=== PATIENT | female | born 1965 | race Caucasian/White ===

== ENCOUNTER 2016-11-09 15:30 | Emergency (ER) | payer OTHER ==
--- NOTE | 2016-11-09 17:09 | EDPHY ---
H & P Stated Complaint: heavy vaginal bleeding since 230 today/is on TXA HPI/ROS: CHIEF COMPLAINT: Heavy menstrual bleeding HISTORY OF PRESENT ILLNESS: This patient is a 51 year old female complaining of very heavy menstrual bleeding onset , 4 days ago, worsening today. She states she generally has heavy bleeding associated with her menstrual periods. This most recent menstrual cycle began about seven days later than usual. Today, she states that she bled through a super-plus sized tampon every fifteen minutes since noon. 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 She is instructed to take 2 tablets by mouth up to three times daily. She denies urinary or bowel movement changes, or associated pain. REVIEW OF SYSTEMS: A ten point review of systems was performed and is negative with the exception of the items mentioned in the HPI. - Personal History LMP (Females 10-55): Now Current Tetanus/Diphtheria Vaccine: Yes - Medical/Surgical History PMH: PMH: back and neck pain, thyroid replacement, allergies. Previous pregnancies 3, para 2. Hx Asthma: No Hx Chronic Respiratory Disease: No Hx Diabetes: No Hx Cardiac Disease: No Hx Renal Disease: No Hx Cirrhosis: No Hx Alcoholism: No Hx HIV/AIDS: No Hx Splenectomy or Spleen Trauma: No Other PMH: back pain - Social History Smoking Status: Never smoked Tobacco Use: Cigarettes Additional Social History: Nonsmoker. OBGYN : Dr. Isabela Leary - Physical Exam Exam: General Appearance: Alert. Vital signs reviewed. blood pressure 166/86. Eyes: Pupils equal and round, no conjunctival injection, no discharge. Anicteric. ENT, Mouth: Mucous membranes are moist, no oropharyngeal erythema or edema. Neck: No lymphadenopathy, supple. Respiratory: Lungs are clear to auscultation; no wheezes, rales, or rhonchi. Cardiovascular: Regular rate and rhythm; no murmur, rub, or gallop. Gastrointestinal: Abdomen is soft and nontender, no masses or organomegaly, bowel sounds normal. Skin: Warm and dry, no rashes on exposed skin, normal color. Back: Nontender to palpation over the thoracolumbar spine. No CVAT. Pelvic: Uterus retroverted, normal size, nontender. Ovaries normal in size, nontender. No cervical motion tenderness. Small to moderate amount of blood in vaginal vault. Extremities: No lower extremity edema, no calf tenderness or swelling. Neurological: Alert and oriented. Moving all four extremities easily and equally. Psychiatric: Normal affect. Constitutional: Initial Vital Signs Temperature (C) 36.8 C 11/09/16 15:51 Heart Rate 94 11/09/16 15:51 Respiratory Rate 18 11/09/16 15:51 Blood Pressure 166/86 H 11/09/16 15:51 O2 Sat (%) 98 11/09/16 15:51 O2 Delivery Mode Room Air Allergies/Adverse Reactions: No Known Allergies Allergy (Verified 11/09/16 15:50) Home Medications: Medication Instructions Recorded Flonase Nasal [place] DAILY 11/29/11 Levothyroxine [Synthroid 75 mcg 05/10/13 (*)] Txa 11/09/16 Medical Decision Making ED Course/Re-evaluation: Re-evaluated at 5:30 p.m.. She is resting comfortably. Her bleeding has essentially stopped. Hemoglobin and hematocrit are normal. She is comfortable returning home. If her bleeding resumes she will take a 3rd dose of TXA. No hemodynamic instability, she is not . She will follow up with her OBGYN on Thursday. She is aware of having high blood pressure in ED. Differential Diagnosis: Vaginal bleeding including but not limited to ectopic , menses, miscarriage, and dysfunctional uterine bleeding. - Data Points Laboratory Results: Laboratory Results 11/09/16 17:20 Departure - Departure Disposition: Home, Routine, Self-Care Clinical Impression: Vaginal bleeding, Dysfunctional uterine bleeding Condition: Good Instructions: Dysfunctional Uterine Bleeding (ED) Additional Instructions: If you have more bleeding you should take a your 3rd dose of TXA. Follow up with your Manager Product Design on Thursday. Return if you have heavy persistent bleeding--if you bleed through a super tampon or super pad in an hour and do that for 3 or 4 hours in a row. Referrals: Ky Burris MD [Primary Care Provider] - As per Instructions Isabela Leary [Unknown] - As per Instructions Report Scribed for: Liset Li Report Scribed by: Adelaide Huitron Date of Report: 11/09/16 Time of Report: 17:58 Physician Review and Approval Statement: 11/09/16 17:08 Portions of this note were transcribed by the medical device sales consultant. I, Dr. Liset Li, personally performed the history, physical exam, and medical decision- making; and confirmed the accuracy of the information in the transcribed note.
[2016-11-09 17:36] VITALS: RESP 20
[2016-11-09 17:37] LABS: % IMMATURE GRANULYOCYTES 0.3 % (0.0-1.1); ABSOLUTE IMMATURE GRANULOCYTES 0.03 10^3/uL (0.00-0.10); ADD DIFF? NO; HEMOGLOBIN 13.8 g/dL (12.6-16.3); MEAN CELL HEMOGLOBIN 33.7 pg (27.9-34.1); MEAN CELL HEMOGLOBIN CONCENTR. 34.5 g/dL (32.4-36.7); MEAN CELL VOLUME 97.6 fL (81.5-99.8); MEAN PLATELET VOLUME 10.3 fL (8.7-11.7); PLATELET COUNT 244 10^3/uL (150-400); RED CELL DISTRIBUTION WIDTH 11.9 % (11.5-15.2)
[2016-11-09 17:38] LABS: ADD MORPH? NO; ADD SCAN? NO; ATYPICAL LYMPHOCYTE FLAG 10 (0-99); FRAGMENT RBC FLAG 0 (0-99); LEFT SHIFT FLG 0 (0-99); LIPEMIA HEMOLYSIS FLAG 90 (0-99); PLATELET CLUMPS FLAG 0 (0-99)
[2016-11-09 19:02] VITALS: BP 114/77; PULSE 77; TEMP 98.4; O2SAT 94
== END 2016-11-09 19:02 | disposition home or self-care (01) ==
DX: N93.8 Other specified abnormal uterine and vaginal bleeding (principal); F17.210 Nicotine dependence, cigarettes, uncomplicated

== ENCOUNTER → 2016-11-26 | Outpatient (CLI) | payer OTHER | LOC: FIMAGING 10:09 | PROVIDERS: ATTEND Midwife | DX: N93.8 Other specified abnormal uterine and vaginal bleeding (principal); N92.6 Irregular menstruation, unspecified; D25.0 Submucous leiomyoma of uterus; N83.201 Unspecified ovarian cyst, right side; N83.202 Unspecified ovarian cyst, left side ==

== ENCOUNTER 2017-01-02 10:35 | Day surgery (SDC) | payer OTHER ==
--- NOTE | 2017-01-01 18:28 | PDGENHP ---
History and Physical History and Physical: PATIENT: LETHA ARTIS DATE OF : 1965 DATE: 12/22/2016 8:33 AM VISIT TYPE: Pre-Operative Visit RENDERING PROVIDER: Barbara Diaz MD REFERRING PROVIDER: DEPARTMENT: Gynecology HOME PHONE #: Assessment/Plan # Detail Type Description 1. Assessment Preoperative exam for gynecologic surgery (Z01.818). Provider Plan Planned procedure: Hysteroscopy, myomectomy, D&C Consents signed. Reviewed risks of pain, infection, bleeding, damage to other organs, failure to resolve condition, need for add'l procedures, transfusion. Normal exam, no further preoperative screening indicated. Scheduled call from anesthesia nurse. Reviewed pre and postoperative instructions. Will give Rx for Addis and Motrin on day of surgery. Recent CBC normal. Miso for cervical prep No antibiotics indicated. Post-op visit 2 weeks after procedure Continue provera until surgery (and she wants to continue another 6 days beyond to get through her son's wedding) 2. Assessment Fibroids, submucosal (D25.0). 3. Assessment Menorrhagia with regular cycle (N92.0). This 51 year old female presents for pre-op. History of Present Illness: 1. pre-op 51 yo here for preop for hysteroscopy, myomectomy, D&C for bleeding and submucosal fibroids. Doing well. No bleeding on provera. No changes since last office visit. From last note: H/o menorrhagia with regular cycle x 2.5 yrs. Her prior Bacteriologist Medical in [place] started her on TXA which did not really help. Overall her periods are still regular, though she did skip on in Mar and one in Jul. She had EMBx with [facility] which was completelely WNL. On November 08 her bleeding was so heavy she had to go to ED. No transfusion needed. At that time was changing a pad/tampon every 15 minutes She also had a period in November which was still heavy but not as bad as october. Current meds include synthroid, flonase. 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 Transvaginal: The uterus measures approximately 9.4 x 8.4 x 6.2 cm. Several fibroids are identified. There is a 2.4 x 1.9 x 1.5 cm submucosal fibroid in the anterior aspect of the mid uterus. There is a 3.9 x 2.4 x 3.3 cm intramural fibroid in the right uterine fundus that abuts the endometrium. The largest fibroid is subserosal/intramural in the left fundus, measuring 4.1 x 3.8 x 3.9 cm. The visible endometrium is homogeneous and measures 6 mm. The right ovary measures 1.6 x 1.2 x 1.8 cm. The left ovary measures 6.2 x 3.5 x 3.7 cm. A 3.0 x 3.2 x 3.0 cm cyst in the left ovary has equivocal thin internal septation. A simple 1.3 x 0.7 x 0.8 cm right paraovarian cyst is noted. Arterial waveforms are documented to the right ovary with limited visualization of blood flow in the left ovary due to positioning. There is a small amount of free fluid. Impression: 1. Fibroid uterus with two submucosal fibroids, which could account for the patient's symptoms. 2. Benign-appearing left ovarian and right paraovarian cysts. Gynecologic History: Patient is perimenopausal. Menarche: 11 y.o. (onset) No hormone replacement therapy. Patient has not had a hysterectomy. OBSTETRIC HISTORY : 3. Parity: Term:2. : 1. Full term: 2. SVDs: 2. Live births: 2. Spontaneous abortions: 1. Past Systemic History Medical History (Detailed) Disease Onset Date Comments heavy vaginal bleeding Surgical History/Management (Detailed) Diagnostics History: ActStatus Study Ordered Completed Interpretation Result / Report ordered Chest/PA & Lat 08/07/[address] CHEST W/O DYE 08/16/[address] MAXILLOFACIAL W/O DYE 01/23/2015 ordered MRI THORACIC SPINE W/O DYE 03/20/2016 ordered Neck Sonogram thyroid 12/01/2012 ordered PELVIC SONO - COMPLETE ADD TRANSVAG IF NECESSARY Bilateral pelvic 11/17/2016 Problem List: Problem Description Onset Date Chronic Hypothyroidism 12/01/2012 Y Allergic rhinitis 12/01/2012 Y Low back pain 12/01/2012 Y Benign neoplasm of colon 12/01/2012 Y Medications (active prior to today) Medication Name Sig Desc Start Date Stop Date Refilled Elsewhere fluticasone 50 mcg/actuation nasal spray,suspension inhale 2 spray by Intranasal route every day in each nostril 02/14/2015 02/14/2015 N Synthroid 75 mcg tablet TAKE 1 TABLET DAILY 06/04/2016 06/04/2016 N Cytotec 100 mcg tablet take 1 tablet by oral route 12 hours and 2 hours prior to procedure 11/17/2016 N Provera 5 mg tablet take 1 tablet by oral route every day 12/14/2016 N Medication Reconciliation Medications reconciled today. Allergies: Ingredient Reaction Medication Name Comment NO KNOWN ALLERGIES Family History (Detailed) Relationship Family Member Name Age at Condition Onset Age Cause of Brother N Alive and well N Father Y 47 Cancer -brain Y Mother N Alive and well N Mother Cataracts Sister Hyperlipidemia N Sister Hypertension N SOCIAL HISTORY (Detailed) Preferred language is Ukrainian. MARITAL STATUS/FAMILY/SOCIAL SUPPORT Currently . Has children: Smoking status: Former smoker. ALCOHOL There is a history of alcohol use. Type: Wine. 3 drinks consumed daily. CAFFEINE The patient uses caffeine. LIFESTYLE DIET healthy. REVIEW OF SYSTEMS System Neg/Pos Details Reproductive Positive Menarche age (Menarche age was 11). Respiratory Negative Cough, dyspnea and wheezing. Integumentary Negative Change in shape/size of mole(s), pruritus and rash. Cardio Negative Chest pain, irregular heartbeat/palpitations and claudication. Maikel/Lymph Negative Easy bleeding and easy bruising. Allergic/Immuno Negative Environmental allergies and food allergies. GI Negative Abdominal pain, constipation, diarrhea, nausea, bloating and vomiting. MS Negative Joint pain, joint swelling and muscle weakness. Negative Dysuria, hematuria, irregular menses, urgency, polyuria, urinary frequency and urinary incontinence. Neuro Negative Gait disturbance, headache, memory impairment and weakness. Psych Negative Insomnia and irritability. Constitutional Negative Fatigue, fever and night sweats. Endocrine Negative Cold intolerance, heat intolerance, polydipsia and polyphagia. Eyes Negative Eye discharge and vision changes. Reproductive Negative Amenorrhea, breast discharge, breast lump(s), breast pain, dysmenorrhea, dyspareunia, fibroids, history of abnormal PAP smear, history of infertility, hormone replacement therapy, menorrhagia, ovarian cysts, sexual dysfunction, vaginal discharge and vaginal itching. ENMT Negative Ear drainage, hearing loss and nasal drainage. Vital Signs: Perimenopausal. HEIGHT Time ft in cm Last Measured Height Position % 10:15 AM 0 64.5 163.83 03/18/2016 BLOOD PRESSURE Time BP mm/Hg Position Side Site Method Cuff Size 10:15 AM 120/80 TEMPERATURE/PULSE/RESPIRATION Time Temp F Temp C Temp Site Pulse/min Pattern Resp/ min 10:15 AM 80 MEASURED BY Time Measured by 10:15 AM Keya Thompson Physical Exam Exam Findings Details Constitutional Normal Well developed. Respiratory Normal Auscultation - Normal. Effort - Normal. Cardiovascular Normal Regular rhythm. No murmurs, gallops, or rubs. Abdomen Normal No abdominal tenderness. Genitourinary * Pelvic deferred. Extremity Normal No edema. Psychiatric Normal Oriented to time, place, person and situation. Appropriate mood and affect. Medications (added or changed this visit): Started Medication Generic Name Directions Instruction Stopped 11/17/2016 Cytotec 100 mcg tablet MISOPROSTOL take 1 tablet by oral route 12 hours and 2 hours prior to procedure 02/14/2015 fluticasone 50 mcg/actuation nasal spray,suspension FLUTICASONE PROPIONATE inhale 2 spray by Intranasal route every day in each nostril 12/22/2016 misoprostol 200 mcg [address] 1 tablet by vaginal route every bedtime the night before procedure 12/22/2016 Addis 5 mg-325 mg tablet HYDROCODONE/ACETAMINOPHEN take 1 tablet by oral route every 6 hours as needed for pain 12/14/2016 Provera 5 mg tablet MEDROXYPROGESTERONE ACETATE take 1 tablet by oral route every day 06/04/2016 Synthroid 75 mcg tablet LEVOTHYROXINE SODIUM TAKE 1 TABLET DAILY BRAND ONLY PLZ ORDERS/PROCEDURES/INSTRUCTIONS/EDUCATION IMMUNIZATIONS ORDERED OR ADMINISTERED BEFORE (AND INCLUDING) TODAY: Immunization Status Administered By Fluzone (3yrs +, split virus) - QUADRIVALENT - 0.5mL (from vial) Completed [facility] TdaP Completed Linda Lee Fluzone (3yrs +, split virus) - QUADRIVALENT - 0.5mL (from vial) Completed flu (split) (3 yrs or older) Completed Linda Lee Electronically signed by: Barbara Diaz MD 12/22/2016 12:16 PM Document generated by: Barbara Diaz 12/22/2016 12:16 PM
[2017-01-02] MEDS ORDERED: LR 1,000 ML IV ONE (11:05)
[2017-01-02] MEDS ORDERED: LIDOCAINE 1% 2 ML INJ ID PRN (11:05)
--- NOTE | 2017-01-02 11:40 | PDHPUP ---
History & Physical Update H&P update statement: This history and physical update is based on an assessment of the patient which was completed after admission or registration (within 24 hours), but prior to the surgery/procedure. H&P update: H&P reviewed & patient examined, no change in patient's condition since H&P completed
[2017-01-02] MEDS ORDERED: HYDROmorphONE/DILAUDID 1 MG/ML SYR IVP PRN ×2 (11:57)
[2017-01-02] MEDS ORDERED: NALOXONE HCL 0.4 MG/ML INJ IVP PRN (11:57)
[2017-01-02] MEDS ORDERED: ONDANSETRON 4 MG/2 ML VIAL IVP PRN (11:57)
[2017-01-02] MEDS ORDERED: MIDAZOLAM 2 MG/2 ML VIAL IVP ONE (11:57)
[2017-01-02] MEDS ORDERED: PROMETHAZINE HCL 25 MG/ML INJ IVP PRN (11:57)
[2017-01-02] MEDS ORDERED: fentaNYL 100 MCG/2 ML INJ IVP PRN ×2 (11:57)
--- NOTE | 2017-01-02 12:01 | PDANEPAE ---
ANE History of Present Illness 51YO f FOR hYSTEROSCOPY ANE Past Medical History - Cardiovascular History Hx Hypertension: No Hx Arrhythmias: No Hx Chest Pain: No Hx Coronary Artery / Peripheral Vascular Disease: No Hx CHF / Valvular Disease: No Hx Palpitations: No - Pulmonary History Hx COPD: No Hx Asthma/Reactive Airway Disease: No Hx Recent Upper Respiratory Infection: No Hx Oxygen in Use at Home: No Hx Sleep Apnea: No Sleep Apnea Screening Result - Last Documented: Negative - Neurologic History Hx Cerebrovascular Accident: No Hx Seizures: No Hx Dementia: No - Endocrine History Hx Diabetes: No Endocrine History Comment: HYPOTHYROID - Renal History Hx Renal Disorders: No - Liver History Hx Hepatic Disorders: No - Neurological & Psychiatric Hx Hx Neurological and Psychiatric Disorders: No - Cancer History Hx Cancer: No - Congenital Disorder History Hx Congenital Disorders: No - GI History Hx Gastrointestinal Disorders: Yes Gastrointestinal History Comment: LEAKY GUT - Other Health History Other Health History: INTERMITTENT DISCOMFORT WITH NECK AND BACK. CORTISOL LEVELS ELEVATED AT HS. UTERINE FIBROIDS. MENORRHAGIA - Chronic Pain History Chronic Pain: Yes (NECK/LOWER BACK) - Surgical History Prior Surgeries: BREAST BX. WISDOM TEETH. COLONOSCOPY WITH POLYP REMVL ANE Review of Systems Review of systems is: negative - Exercise capacity METS (RN): 4 METS ANE Patient History - Allergies Allergies/Adverse Reactions: No Known Allergies Allergy (Verified 11/09/16 15:50) - Home Medications Home Medications: Flonase Nasal [place] NAS[place] DAILY 11/29/11 [Last Taken 01/01/17 08:00] Levothyroxine [Synthroid 75 mcg (*)] DAILY06 05/10/13 [Last Taken 01/02/17 07: 00] Adrena Calm MISC 12/25/16 [Last Taken 12/26/16] Herbal Drugs DAILY 12/25/16 [Last Taken 12/26/16] - NPO status NPO Since - Liquids (Date): 01/02/17 NPO Since - Liquids (Time): 09:00 NPO Since - Solids (Date): 01/01/17 NPO Since - Solids (Time): 21:45 - Smoking Hx Smoking Status: Never smoked - Family Anes Hx Family Hx Anesthesia Complications: SISTER HAS GI ISSUES WITH GENERAL ANESTHESIA ANE Labs/Vital Signs - Vital Signs Blood Pressure: 121/75 Heart Rate: 72 Respiratory Rate: 15 O2 Sat (%): 97 Height: 162.56 cm Weight: 61.689 kg ANE Physical Exam - Airway Neck exam: FROM Mallampati Score: Class 2 Mouth exam: normal dental/mouth exam - Pulmonary Pulmonary: clear to auscultation - Cardiovascular Cardiovascular: regular rate and rhythym ANE Anesthesia Plan Anesthesia Plan: GA w LMA
[2017-01-02] MEDS ORDERED: MIDAZOLAM 2 MG/2 ML VIAL ONE (12:04)
[2017-01-02] MEDS ORDERED: PROPOFOL 200 MG/20 ML VIAL ONE ×2 (12:10→13:55)
[2017-01-02] MEDS ORDERED: fentaNYL 100 MCG/2 ML INJ ONE ×2 (12:10→13:58)
[2017-01-02] MEDS ORDERED: PROPOFOL/EMULSION 500 MG/50 ML BOTTLE IV ONE ×2 (12:10→13:02)
[2017-01-02] MEDS ORDERED: LIDOCAINE 2% 5 ML SDV ONE (12:11)
[2017-01-02] MEDS ORDERED: DEXAMETHASONE 4 MG/ML VIAL ONE ×2 (12:21)
[2017-01-02] MEDS ORDERED: ONDANSETRON 4 MG/2 ML VIAL ONE (12:21)
[2017-01-02] MEDS ORDERED: METOCLOPRAMIDE 10 MG/2 ML VIAL ONE (12:22)
[2017-01-02] MEDS ORDERED: epHEDrine SULFATE 10 MG/ML SYR ONE (12:28)
[2017-01-02] MEDS ORDERED: LIDO/EPI 1% **for epidural** 30 ML SDV ONE (13:37)
[2017-01-02] MEDS ORDERED: SILVER NITRATE APPLICATOR 1 APPL TP ONE (13:59)
--- NOTE | 2017-01-02 14:14 | POSTANESTH ---
Post Anesthetic Evaluation Cardiovascular Status: Normal, Stable Respiratory Status: Normal, Stable Level of Consciousness/Mental Status: Can Participate in Eval, Alert and Oriented Pain Control: Adequate, Prn Tx Ordered Nausea/Vomiting Control: Adequate, Prn Tx Ordered Complications Possibly Related to Anesthesia: None Noted
[2017-01-02 14:58] VITALS: RESP 15
[2017-01-02] MEDS ORDERED: ONDANSETRON DISINTEGRATING 4 MG TAB PO PRN (14:58)
[2017-01-02] MEDS ORDERED: HYDROCODONE/APAP 5/325 TAB PO PRN (14:58)
[2017-01-02 15:00] VITALS: TEMP 97.7
[2017-01-02 16:07] VITALS: BP 119/70; PULSE 92; O2SAT 98
--- NOTE | 2017-01-02 19:13 | SUROPNOTE ---
[facility] Operative Report - Surgery 01/02/17 Preoperative dx: Submucosal fibroid, abnormal uterine bleeding Postoperative dx: Same Procedure: Hysteroscopy, hysteroscopic myomectomy, dilation and curettage Surgeon: Barbara Diaz Anesthesia: GETA Findings: Large submusocal fibroid emanating from right fundus, obscuring right ostia. Left ostia visualized. Otherwise normal intrauterine cavity EBL: 50 ml Fluid deficit: 1450 ml normal saline Specimens: Fibroid, endometrial curettings Complications: None Outcome: Stable to PACU Indications: 51 yo with menorrhagia for 2.5 years who was found to have evidence of submucosal fibroid on pelvic US. We reviewed treatment options and she desired to proceed with hysteroscopic resection. See dictation for full operative report
--- NOTE | 2017-01-03 09:08 | GOP ---
[f rep st] OPERATIVE REPORT DATE OF OPERATION: 01/02/2017 SURGEON: Barbara Diaz MD ANESTHESIA: General endotracheal. ANESTHESIOLOGIST: Dwayne Torres. PREOPERATIVE DIAGNOSIS: 1. Submucosal uterine fibroid. 2. Abnormal uterine bleeding. 3. Menorrhagia. POSTOPERATIVE DIAGNOSIS: 1. Submucosal uterine fibroid. 2. Abnormal uterine bleeding. 3. Menorrhagia. PROCEDURE PERFORMED: 1. Hysteroscopy. 2. Hysteroscopic myomectomy. 3. Dilation and curettage. FINDINGS: Large submucosal fibroid emanating from right fundus obscuring the right ostia. Left ostia visualized. Otherwise normal intrauterine cavity. SPECIMENS: Uterine fibroid and endometrial curettings. ESTIMATED BLOOD LOSS: 50 mL. INDICATIONS: A 51-year-old 3, para 2-0-1-2 with a history of menorrhagia for 2-1/2 years, who was found to have evidence of a submucosal fibroid on pelvic ultrasound. We reviewed treatment options and she desired to proceed with hysteroscopic resection. DESCRIPTION OF PROCEDURE: The patient was brought to the operating room and a time-out was done, with all parties present and in agreement with the patient and the procedure. General endotracheal anesthesia was initiated. She was prepped and draped in the normal sterile fashion in dorsal lithotomy with Sandip stirrups. She had emptied her bladder prior to the procedure. A final time- out was performed. A speculum was placed and the anterior lip of the cervix was grasped with a single-tooth tenaculum. A paracervical block with 10 mL of 1% lidocaine with epinephrine was given. The cervix was easily sequentially dilated to 6 mm. The 5 mm hysteroscope was introduced with the above findings. The hysteroscope was then removed and the cervix was further dilated to 9 mm. The larger 9 mm hysteroscope was then introduced. The TRUCLEAR ultra fibroid blade was introduced and hysteroscopic myomectomy was initiated. The vast majority of the fibroid was removed. At approximately 90% fibroid removal, the patient started to have a small amount of bleeding from the bed of the submucosal fibroid that obscured visualization. Also at this time, her fluid deficit was at 1450 mL normal saline. Given the poor visualization, the fluid deficit and the fact that additional time would be needed to completely resect the fibroid, the decision was made to complete the procedure at this time. The patient was awakened in good condition. All instruments were removed. All counts were correct. She had minimal bleeding. She was brought to the recovery room. We reviewed in detail the intraoperative course. We will plan to monitor her bleeding for 1-2 cycles and determine if she needs to be brought back to the operating room for 1 additional attempt to completely resect to the remaining small portion of the submucosal fibroid. FLUIDS REPLACED: Deficit: 1450 mL normal saline. COMPLICATIONS: None. DISPOSITION: Stable to PACU. /[id number]/MODL MTDD
== END 2017-01-02 16:00 | disposition home or self-care (01) ==
LOC: FSGY 10:35
PROVIDERS: ATTEND Obstetrics & Gynecology
PROC: 0UDB8ZX Extraction of Endometrium, Via Natural or Artificial Opening Endoscopic, Diagnostic (ICD-10-PCS; principal; 2017-01-02 12:00)
DX: D25.0 Submucous leiomyoma of uterus (principal); N93.9 Abnormal uterine and vaginal bleeding, unspecified; N92.0 Excessive and frequent menstruation with regular cycle; N83.202 Unspecified ovarian cyst, left side; N83.201 Unspecified ovarian cyst, right side; E03.9 Hypothyroidism, unspecified
CPT/HCPCS: 58561; C1782; J1100; J2250; J2405; J2704; J2765; J3010

== ENCOUNTER → 2017-05-14 | Outpatient (CLI) | payer OTHER | LOC: BRMIMAGING 08:19 | PROVIDERS: ATTEND Obstetrics & Gynecology | DX: Z12.31 Encounter for screening mammogram for malignant neoplasm of breast (principal) | CPT/HCPCS: G0202 ==

== ENCOUNTER → 2017-09-18 | Outpatient (CLI) | payer OTHER | LOC: FIMAGING 09:27 | PROVIDERS: ATTEND Obstetrics & Gynecology | DX: N83.202 Unspecified ovarian cyst, left side (principal); D25.1 Intramural leiomyoma of uterus ==

== ENCOUNTER → 2018-06-30 | Outpatient (CLI) | payer OTHER | LOC: FIMAGING 10:03 | PROVIDERS: ATTEND Obstetrics & Gynecology | DX: Z12.31 Encounter for screening mammogram for malignant neoplasm of breast (principal) ==

== ENCOUNTER 2018-08-12 08:18 | Emergency (ER) | payer OTHER ==
[2018-08-12 08:38] LABS: PLATELET COUNT 273 10^3/uL (150-400)
--- NOTE | 2018-08-12 09:13 | EDPHY ---
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 This morning she was preparing a a smoothie and had fairly sudden onset of blanching to the left 3rd and 4th digits. Her fingers became white and later tingly. She became anxious about the possibility a heart attack or stroke and sat down. Her vision became pixillated and she became quite sweaty. Associated with shortness of breath and feeling like her speech was slow. Her speech was not garbled or slurred. On EMS arrival, she was feeling better and her fingers were back to normal. Similar episode of finger discoloration yesterday after walking outside in cold weather. REVIEW OF SYSTEMS: complete 10 point ROS reviewed and is negative except for the noted elements in the HPI - Personal History Current Tetanus/Diphtheria Vaccine: Yes Current Tetanus Diphtheria and Acellular Pertussis (TDAP): Yes Tetanus Vaccine Date: < 10 years - Medical/Surgical History Hx Asthma: No Hx Chronic Respiratory Disease: No Hx Diabetes: No Hx Cardiac Disease: No Hx Renal Disease: No Hx Cirrhosis: No Hx Alcoholism: No Hx HIV/AIDS: No Hx Splenectomy or Spleen Trauma: No Other PMH: back pain, occular migraines, hypothyroid, hashimotos - Social History Smoking Status: Never smoked Alcohol Use: Sober Drug Use: None - Physical Exam Exam: General Appearance: Alert, pleasant Eyes: Pupils equal and round, no conjunctival pallor or injection ENT, Mouth: Mucous membranes moist Neck: Normal inspection Respiratory: Lungs are clear to auscultation Cardiovascular: Regular rate and rhythm Gastrointestinal: Abdomen is soft and nontender Neurological: Alert, oriented x3, cranial nerves II through XII intact, motor 5 /5, sensory intact to light touch, normal gait Skin: Warm and dry Vascular: 2+ radial pulses, capillary refill brisk Extremities: Bilateral hands-normal inspection, no tenderness, range of motion without pain Psychiatric: Slightly anxious Constitutional: Initial Vital Signs Temperature (C) 36.7 C 08/12/18 08:18 Heart Rate 75 08/12/18 08:18 Respiratory Rate 18 08/12/18 08:18 Blood Pressure 141/75 H 08/12/18 08:18 O2 Sat (%) 95 08/12/18 08:18 O2 Delivery Mode Room Air Allergies/Adverse Reactions: No Known Allergies Allergy (Verified 08/12/18 08:23) Home Medications: Medication Instructions Recorded Flonase Nasal [place] NASAL DAILY 11/29/11 Levothyroxine [Synthroid 75 mcg DAILY06 05/10/13 (*)] Adrena Calm MISC 12/25/16 Herbal Drugs DAILY 12/25/16 Valtrex 08/12/18 Medical Decision Making - Diagnostics EKG Interpretation: EKG interpreted by me reveals normal sinus rhythm, rate 69, low voltage, no ST or T segment changes. Interpretation: Borderline EKG ED Course/Re-evaluation: This patient presents with Raynaud syndrome, followed by a near syncopal episode. There is no evidence of CVA or ACS. Stat EKG reveals normal sinus rhythm, without ischemic changes or dysrhythmia. Monitor reveals normal sinus rhythm. Laboratory tests reveal hyperglycemia, with a blood sugar of 162. A hemoglobin A1c was sent and the patient was informed to follow up with her primary care physician regarding the hemoglobin A1c. IV normal saline and Ativan 0.5 mg IV given. Patient felt much better and significant less anxious after IV Ativan. Warning signs discussed. Differential Diagnosis: Differential diagnosis includes though is not limited to cardiac dysrhythmia, CVA, TIA, GI bleed, sepsis, hypoglycemia. - Data Points Laboratory Results: Laboratory Results 08/12/18 08:25 08/12/18 08:25 08/12/18 08/12/18 08:25 08:25 WBC 7.83 10^3/uL 10^3/uL (3.80-9.50) RBC 4.53 10^6/uL 10^6/uL (4.18-5.33) Hgb 15.4 g/dL g/dL (12.6-16.3) Hct 45.2 % % (38.0-47.0) MCV 99.8 fL fL (81.5-99.8) MCH 34.0 pg pg (27.9-34.1) MCHC 34.1 g/dL g/dL (32.4-36.7) RDW 12.0 % % (11.5-15.2) Plt Count 273 10^3/uL 10^3/uL (150-400) MPV 10.9 fL fL (8.7-11.7) Neut % (Auto) 38.8 % L % (39.3-74.2) Lymph % (Auto) 49.0 % H % (15.0-45.0) Vance % (Auto) 9.8 % % (4.5-13.0) Eos % (Auto) 2.0 % % (0.6-7.6) Baso % (Auto) 0.3 % % (0.3-1.7) Nucleat RBC Rel Count 0.0 % % (0.0-0.2) Absolute Neuts (auto) 3.03 10^3/uL 10^3/uL (1.70-6.50) Absolute Lymphs (auto) 3.84 10^3/uL H 10^3/uL (1.00-3.00) Absolute Monos (auto) 0.77 10^3/uL 10^3/uL (0.30-0.80) Absolute Eos (auto) 0.16 10^3/uL 10^3/uL (0.03-0.40) Absolute Basos (auto) 0.02 10^3/uL 10^3/uL (0.02-0.10) Absolute Nucleated RBC 0.00 10^3/uL 10^3/uL (0-0.01) Immature Gran % 0.1 % % (0.0-1.1) Immature Gran # 0.01 10^3/uL 10^3/uL (0.00-0.10) Sodium 138 mEq/L mEq/L (135-145) Potassium 4.5 mEq/L mEq/L (3.5-5.2) Chloride 104 mEq/L mEq/L (97-110) Carbon Dioxide 24 mEq/l mEq/l (22-31) Anion Gap 10 mEq/L mEq/L (6-14) BUN 13 mg/dL mg/dL (7-23) Creatinine 0.6 mg/dL mg/dL (0.6-1.0) Estimated GFR > 60 Glucose 162 mg/dL H mg/dL (70-100) Calcium 9.5 mg/dL mg/dL (8.5-10.4) Departure - Departure Disposition: Home, Routine, Self-Care Clinical Impression: Raynauds syndrome, Near syncope Condition: Good Instructions: Raynaud Disease (ED), Near Syncope (ED) Additional Instructions: Your blood sugar is high today (162). You will need further testing for possible diabetes. I sent an hemoglobin A1c, which is a measure of your average blood sugar. This will help your physician decide whether you have diabetes or not. Drink plenty of fluids today. If the finger blanching recurs, consider placing your hands in warm water. You should also wear gloves and consider using hand warmers when you are outside in cold weather. Referrals: Ky Burris MD [Primary Care Provider] - 5-7 days, call for appt.
[2018-08-12] MEDS ORDERED: NS 1,000 ML IV ONE (09:23)
[2018-08-12] MEDS ORDERED: LORazepam 2 MG/ML INJ IVP ONE (09:24)
[2018-08-12 10:30] VITALS: BP 120/59
--- NOTE | 2018-08-12 15:21 | CPEKG ---
Test Reason : OPEN Blood Pressure : / mmHG Vent. Rate : 069 BPM Atrial Rate : 068 BPM P-R Int : 173 ms QRS Dur : 086 ms QT Int : 389 ms P-R-T Axes : 054 059 059 degrees QTc Int : 417 ms Sinus rhythm Low voltage, extremity leads Confirmed by Rosamaria Dwyer ([id number]) on 08/12/2018 3:20:33 PM Referred By: PHYSICIAN ED Confirmed By:Rosamaria Dwyer
== END 2018-08-12 11:01 | disposition home or self-care (01) ==
LOC: EDUNIT#
DX: I73.00 Raynaud's syndrome without gangrene (principal); R55 Syncope and collapse; E06.3 Autoimmune thyroiditis; E86.9 Volume depletion, unspecified
CPT/HCPCS: 96374; J2060